=== PATIENT | female | born 1945 | race Caucasian/White ===

== ENCOUNTER 2019-09-30 13:25 | Emergency (ER) | payer MEDICARE ==
[~2019-09-30 13:25] MED LIST: AMLO2.5T4 PO; CETI10TA57 PO; FLUT15.845 NASAL; FLUT1DIS3 IH; LEVO75TA10 PO; MONT10TA24 PO; OMEP-50 PO; ROPI0.5T5 PO
[2019-09-30] MEDS ORDERED: ACETAMINOPHEN 325 MG TAB ONE (14:51)
[2019-09-30] MEDS ORDERED: TETANUS/DIPHTHERIA TOXOID [ADULT] 0.5 ML VIAL IM ONE (14:52)
== END 2019-09-30 16:01 | disposition home or self-care (01) ==
LOC: EDH 13:25
DX: S83.8X1A Sprain of other specified parts of right knee, initial encounter (principal); S43.491A Other sprain of right shoulder joint, initial encounter; S53.491A Other sprain of right elbow, initial encounter; I10 Essential (primary) hypertension; J45.909 Unspecified asthma, uncomplicated; Z88.5 Allergy status to narcotic agent; Z88.2 Allergy status to sulfonamides; W18.39XA Other fall on same level, initial encounter; Y93.01 Activity, walking, marching and hiking; Y92.89 Other specified places as the place of occurrence of the external cause; Y99.8 Other external cause status
CPT/HCPCS: 73030; 73080; 73521; 73552; 73562; 90471; 90714